=== PATIENT | female | born 1995 | race American Indian/Alaskan Native ===

== ENCOUNTER 2018-09-29 17:30 | Emergency (ER) | payer MEDICAID ==
[~2018-09-29] VITALS: Ht 160 cm; Wt 55.0 kg
[~2018-09-29 17:30] MED LIST: CEPH-571 PO; PHEN-786 PO
[2018-09-29 17:39] VITALS: BP 118/72
[2018-09-29] MEDS ORDERED: rabies immune globulin/PF 150 unit/ml inj IMVAC STA (18:08)
[2018-09-29] MEDS ORDERED: TETanus/Pertussis (Acell)/Diphther VAC/PF (Tdap-Adult) 0.5ml syringe IM ONE (18:10)
[2018-09-29] MEDS ORDERED: rabies vaccine (PCEC)/PF 2.5 unit kit IMVAC ONE (18:10)
[2018-09-29] MEDS ORDERED: mupirocin 2% ointment 22GM TP ONE (18:10)
[2018-09-29] MEDS ORDERED: LIDOcaine 1.5% w/epinephrine 1:200,000 5ml ampul IJ ONE (18:10)
[2018-09-29] MEDS ORDERED: LIDOcaine 1% w/epiNEPHrine 1:200,000 30ml vial IJ ONE (18:20)
[2018-09-29] MEDS ORDERED: AMOX-580 PO (18:26)
== END 2018-09-29 19:09 | disposition home or self-care (01) ==
LOC: ER 17:30
DX: S81.032A Puncture wound without foreign body, left knee, initial encounter (principal); F12.90 Cannabis use, unspecified, uncomplicated; W54.0XXA Bitten by dog, initial encounter; Y93.89 Activity, other specified; Y92.89 Other specified places as the place of occurrence of the external cause; Y99.8 Other external cause status
CPT/HCPCS: 90375; 90471; 90472; 90675; 90715; 96372; 99283; J3490

== ENCOUNTER 2019-01-05 12:34 | Emergency (ER) | payer MEDICAID ==
[~2019-01-05] VITALS: Ht 165.1 cm; Wt 64.3 kg
[~2019-01-05 12:34] MED LIST changes: +GABA300C PO; +LORA1TAB PO; +MULT-933 PO
[2019-01-05 12:55] VITALS: BP 106/76
[2019-01-05] MEDS ORDERED: ONDA4TAB6 PO (14:24)
[2019-01-05] MEDS ORDERED: GABA-532 PO (14:24)
[2019-01-05] MEDS ORDERED: MULT-933 PO (14:24)
== END 2019-01-05 14:34 | disposition home or self-care (01) ==
LOC: ER 12:43
DX: F19.10 Other psychoactive substance abuse, uncomplicated (principal); M54.9 Dorsalgia, unspecified; R42 Dizziness and giddiness; F12.90 Cannabis use, unspecified, uncomplicated; Z02.89 Encounter for other administrative examinations; Z86.14 Personal history of Methicillin resistant Staphylococcus aureus infection; Z79.899 Other long term (current) drug therapy
CPT/HCPCS: 99283

== ENCOUNTER 2019-04-12 02:25 | Emergency (ER) | payer MEDICAID ==
[~2019-04-12] VITALS: Ht 162.6 cm; Wt 60.9 kg
[~2019-04-12 02:25] MED LIST changes: +GABA-532 PO; -LORA1TAB PO; +ONDA4TAB6 PO
[2019-04-12 02:27] VITALS: BP 112/70
--- NOTE | 2019-04-12 02:50 | NUR ---
Registration reports that the patient is leaving. The patient made no mention to nursing staff. Attempted to contact the patient but she was gone from the lobby by the time I got there. I stepped out front and called for the patient but she was nowhere to be found.
== END 2019-04-12 02:53 | disposition left against medical advice (07) ==
LOC: ER 02:25
DX: R51 Headache (principal); Z53.21 Procedure and treatment not carried out due to patient leaving prior to being seen by health care provider

== ENCOUNTER 2019-06-21 04:40 | Emergency (ER) | payer MEDICAID ==
[~2019-06-21] VITALS: Ht 160 cm; Wt 56.6 kg
[2019-06-21] MEDS ORDERED: ACET-812 PO (04:58)
[2019-06-21] MEDS ORDERED: IBUP-1986 PO (04:58)
[2019-06-21 05:07] VITALS: BP 128/91
== END 2019-06-21 05:11 | disposition home or self-care (01) ==
LOC: ER 04:41
DX: M79.18 Myalgia, other site (principal); M54.2 Cervicalgia; M25.512 Pain in left shoulder; R51 Headache; M19.90 Unspecified osteoarthritis, unspecified site; F12.90 Cannabis use, unspecified, uncomplicated; Z86.14 Personal history of Methicillin resistant Staphylococcus aureus infection; Z79.899 Other long term (current) drug therapy
CPT/HCPCS: 99282

== ENCOUNTER 2019-07-19 13:33 | Emergency (ER) | payer MEDICAID ==
[~2019-07-19] VITALS: Ht 162.6 cm; Wt 57.7 kg
[~2019-07-19 13:33] MED LIST changes: +ACET-812 PO; +IBUP-1986 PO
[2019-07-19 13:59] VITALS: BP 136/89
== END 2019-07-19 16:09 | disposition left against medical advice (07) ==
LOC: ER 13:34
DX: R56.9 Unspecified convulsions (principal); R51 Headache; M25.511 Pain in right shoulder; M25.551 Pain in right hip; Z53.21 Procedure and treatment not carried out due to patient leaving prior to being seen by health care provider

== ENCOUNTER 2019-12-31 12:39 | Emergency (ER) | payer MEDICAID ==
[~2019-12-31] VITALS: Ht 167.6 cm; Wt 56.8 kg
[2019-12-31 14:23] LABS: BASOPHILS % (AUTO) 0.4 % (0-1); EOSINOPHILS % (AUTO) 0.3 % (0-6); HEMATOCRIT 41.6 % (35.0-45.0); HEMOGLOBIN 13.9 g/dl (12.0-16.0); LYMPHOCYTES # (AUTO) 1.3 X10'3 (1.1-4.8); LYMPHOCYTES % (AUTO) 16.9 % (21-51); MEAN CORPUSCULAR HEMOGLOBIN 31.6 PG (27.0-31.0); MEAN CORPUSCULAR HGB CONC 33.3 g/dL (33.0-36.5); MEAN CORPUSCULAR VOLUME 94.8 FL (78-98); MEAN PLATELET VOLUME 7.5 FL (7.4-10.4); MONOCYTES # (AUTO) 0.6 X10'3 (0-0.9); MONOCYTES % (AUTO) 7.7 % (2-12); NEUTROPHILS # (AUTO) 5.7 X10'3 (1.8-7.7); NEUTROPHILS % (AUTO) 74.7 % (42-75); PLATELET COUNT 306 X10'3 (140-440); RED BLOOD COUNT 4.39 X10'6 (4.20-5.60); RED CELL DISTRIBUTION WIDTH 14.6 % (11.5-14.5); WHITE BLOOD COUNT 7.6 X10'3 (4.5-11.0)
[2019-12-31 14:32] LABS: ALANINE AMINOTRANSFERASE 24 U/L (12-78); ALKALINE PHOSPHATASE 81 IU/L (46-116); ANION GAP 6 (8-16); ASPARTATE AMINO TRANSFERASE 23 U/L (10-37); BILIRUBIN,TOTAL 0.4 MG/DL (0.1-1.0); BLOOD UREA NITROGEN 8 MG/DL (7-18); BUN/CREATININE RATIO 10.8 (6.6-38.0); CALCIUM 8.8 MG/DL (8.5-10.1); CHLORIDE 106 MMOL/L (99-107); CREATININE 0.74 MG/DL (0.40-0.90); ETHANOL < 0.010 GM/DL (0.0-0.010); GLUCOSE 84 MG/DL (70-104); POTASSIUM 3.9 MMOL/L (3.5-5.1); SODIUM 139 MMOL/L (135-145); TOTAL CARBON DIOXIDE 27.1 MMOL/L (24-32); TOTAL PROTEIN 7.9 G/DL (6.4-8.2); eGFR > 90 ML/MIN
[2019-12-31] MEDS ORDERED: LORazepam 1 MG tablet PO ONE (14:40)
[2019-12-31] MEDS ORDERED: normal saline 1000ml 1,000 ML IV ONE (14:40)
[2019-12-31 14:49] LABS: CLARITY,URINE CLEAR (Clear); COLOR,URINE YELLOW (Yellow); GLUCOSE, URINE NEGATIVE (Neg); KETONES,URINE TRACE mg/dl (Neg); LEUKOCYTE ESTERASE ,URINE TRACE (Neg); NITRITES, URINE NEGATIVE (Neg); OCCULT BLOOD,URINE NEGATIVE (Neg); PROTEIN,URINE TRACE mg/dl (Neg); UA COLLECTION TYPE CLN CATCH MIDSTREAM; UROBILINOGEN,URINE 0.2 E.U/dL (0.2-1.0)
[2019-12-31 14:56] LABS: BACTERIA,URINE 1+ /HPF (Neg); MUCUS STRANDS MODERATE /LPF (Neg); RBC,URINE NONE SEEN /HPF (0-2); SQUAMOUS EPITHELIAL CELL,UR MODERATE /LPF (FEW)
[2019-12-31 15:02] LABS: URINE AMPHETAMINE SCREEN POSITIVE (Neg); URINE BARBITUATE SCREEN NEGATIVE (Neg); URINE BENZODIAZEPINES SCREEN NEGATIVE (Neg); URINE CANNABINOID SCREEN POSITIVE (Neg); URINE COCAINE SCREEN NEGATIVE (Neg); URINE METHADONE SCREEN NEGATIVE (Neg); URINE OPIATE SCREEN NEGATIVE (Neg); URINE PHENCYCLIDINE SCREEN NEGATIVE (Neg)
[2019-12-31] MEDS ORDERED: NITR100C6 PO (15:13)
[2019-12-31] MEDS ORDERED: KEP500T PO (15:13)
[2019-12-31] MEDS ORDERED: levetiracetam 250mg tablet PO ONE (15:15)
[2019-12-31 15:42] VITALS: BP 124/75
== END 2019-12-31 15:44 | disposition home or self-care (01) ==
LOC: ER 12:39
DX: S00.83XA Contusion of other part of head, initial encounter (principal); G40.909 Epilepsy, unspecified, not intractable, without status epilepticus; N39.0 Urinary tract infection, site not specified; F12.90 Cannabis use, unspecified, uncomplicated; R41.0 Disorientation, unspecified; Z86.14 Personal history of Methicillin resistant Staphylococcus aureus infection; Z79.899 Other long term (current) drug therapy; W18.39XA Other fall on same level, initial encounter; Y93.89 Activity, other specified; Y92.89 Other specified places as the place of occurrence of the external cause; Y99.8 Other external cause status
CPT/HCPCS: 36415; 70450; 80053; 80305; 80320; 81001; 82948; 85025; 87088; 93005; 99285; J7030

== ENCOUNTER 2020-07-05 05:31 | Emergency (ER) | payer MEDICAID ==
[~2020-07-05] VITALS: Ht 170.2 cm; Wt 56.8 kg
[~2020-07-05 05:31] MED LIST changes: +KEP500T PO; +NITR100C6 PO
[2020-07-05] MEDS ORDERED: LIDOcaine 1% W/epiNEPHrine 1:200,000 10ml vial IJ ONE (05:45)
[2020-07-05] MEDS ORDERED: LIDOcaine 1% W/epiNEPHrine 1:100,000 20ml vial ONE (05:55)
[2020-07-05 06:02] LABS: BASOPHILS % (AUTO) 0.3 % (0-1); EOSINOPHILS % (AUTO) 0.4 % (0-6); HEMATOCRIT 42.1 % (35.0-45.0); HEMOGLOBIN 14.3 g/dl (12.0-16.0); LYMPHOCYTES # (AUTO) 1.6 X10'3 (1.1-4.8); LYMPHOCYTES % (AUTO) 14.4 % (21-51); MEAN CORPUSCULAR HEMOGLOBIN 33.6 PG (27.0-31.0); MEAN CORPUSCULAR VOLUME 98.7 FL (78-98); MEAN PLATELET VOLUME 7.5 FL (7.4-10.4); MONOCYTES # (AUTO) 0.7 X10'3 (0-0.9); MONOCYTES % (AUTO) 6.2 % (2-12); NEUTROPHILS # (AUTO) 8.9 X10'3 (1.8-7.7); NEUTROPHILS % (AUTO) 78.7 % (42-75); PLATELET COUNT 319 X10'3 (140-440); RED BLOOD COUNT 4.26 X10'6 (4.20-5.60); RED CELL DISTRIBUTION WIDTH 13.6 % (11.5-14.5); WHITE BLOOD COUNT 11.4 X10'3 (4.5-11.0)
[2020-07-05 06:12] LABS: ALBUMIN 3.8 G/DL (3.4-5.0); ANION GAP 11 (8-16); BLOOD UREA NITROGEN 11 MG/DL (7-18); BUN/CREATININE RATIO 20.4 (6.6-38.0); CALCIUM 8.9 MG/DL (8.5-10.1); CHLORIDE 106 MMOL/L (99-107); CREATININE 0.54 MG/DL (0.40-0.90); ETHANOL 0.083 GM/DL (0.0-0.010); GLUCOSE 99 MG/DL (70-104); POTASSIUM 3.8 MMOL/L (3.5-5.1); SODIUM 143 MMOL/L (135-145); TOTAL CARBON DIOXIDE 26.2 MMOL/L (24-32); eGFR > 90 ML/MIN
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
[2020-07-05 06:23] LABS: HCG SERUM QL NEGATIVE
--- NOTE | 2020-07-05 07:44 | NUR ---
sister marissa cha [phone]
[2020-07-05 07:45] LABS: CLARITY,URINE SLIGHTLY CLOUDY (Clear); COLOR,URINE YELLOW (Yellow); GLUCOSE, URINE NEGATIVE (Neg); KETONES,URINE NEGATIVE (Neg); LEUKOCYTE ESTERASE ,URINE NEGATIVE (Neg); NITRITES, URINE NEGATIVE (Neg); OCCULT BLOOD,URINE NEGATIVE (Neg); PROTEIN,URINE NEGATIVE (Neg); UROBILINOGEN,URINE 0.2 E.U/dL (0.2-1.0)
[2020-07-05 07:46] LABS: UA COLLECTION TYPE STRAIGHT CATH
[2020-07-05 07:53] LABS: COARSE GRANULAR CAST 0-3 /LPF (NEGATIVE); HYALINE CASTS 0-3 /LPF (NEGATIVE); MUCUS STRANDS MODERATE /LPF (Neg); SQUAMOUS EPITHELIAL CELL,UR MODERATE /LPF (FEW)
[2020-07-05 07:54] LABS: BACTERIA,URINE 2+ /HPF (Neg); TRANSITIONAL EPI CELLS,URINE FEW /HPF
[2020-07-05 07:55] LABS: RBC,URINE 0-2 /HPF (0-2); WBC,URINE 0-4 /HPF (0-4)
[2020-07-05 09:08] VITALS: BP 112/84
== END 2020-07-05 09:09 | disposition home or self-care (01) ==
LOC: ER 05:31
DX: S01.81XA Laceration without foreign body of other part of head, initial encounter (principal); S90.32XA Contusion of left foot, initial encounter; F10.129 Alcohol abuse with intoxication, unspecified; M25.572 Pain in left ankle and joints of left foot; F12.90 Cannabis use, unspecified, uncomplicated; Z86.69 Personal history of other diseases of the nervous system and sense organs; Z86.14 Personal history of Methicillin resistant Staphylococcus aureus infection; Z79.2 Long term (current) use of antibiotics; Z79.899 Other long term (current) drug therapy; X58.XXXA Exposure to other specified factors, initial encounter; Y93.89 Activity, other specified; Y92.89 Other specified places as the place of occurrence of the external cause; Y99.8 Other external cause status
CPT/HCPCS: 12013; 36415; 70450; 71045; 80048; 80320; 81001; 84703; 85025; 99285

== ENCOUNTER 2023-05-29 01:38 | Emergency (ER) | payer MEDICAID ==
[2023-05-29] MEDS ORDERED: MUPI22OI30 TOP (13:46)
[2023-05-29] MEDS ORDERED: CEPH-585 PO (13:46)
== END 2023-05-29 04:26 | disposition left against medical advice (07) ==
LOC: ER 01:39
DX: S91.319A Laceration without foreign body, unspecified foot, initial encounter (principal); Z53.21 Procedure and treatment not carried out due to patient leaving prior to being seen by health care provider; X58.XXXA Exposure to other specified factors, initial encounter; Y93.89 Activity, other specified; Y92.89 Other specified places as the place of occurrence of the external cause; Y99.8 Other external cause status

== ENCOUNTER 2023-05-29 10:32 | Emergency (ER) | payer MEDICAID ==
[~2023-05-29] VITALS: Ht 165.1 cm; Wt 59.1 kg
[2023-05-29 10:57] VITALS: BP 115/66; PULSE 100; RESP 16; TEMP 97.8; O2SAT 99
[2023-05-29] MEDS ORDERED: mupirocin 2% ointment 22GM TP ONE (11:55)
[2023-05-29] MEDS ORDERED: TETanus/Pertussis (Acell)/Diphther VAC/PF (Tdap-Adult) 0.5ml syringe IMVAC ONE (11:55)
[2023-05-29] MEDS ORDERED: MUPI22OI30 TOP (13:46)
[2023-05-29] MEDS ORDERED: CEPH-585 PO (13:46)
== END 2023-05-29 13:55 | disposition home or self-care (01) ==
LOC: ER 10:33
DX: S91.301A Unspecified open wound, right foot, initial encounter (principal); M79.671 Pain in right foot; L02.611 Cutaneous abscess of right foot; F12.90 Cannabis use, unspecified, uncomplicated; M19.90 Unspecified osteoarthritis, unspecified site; Z87.81 Personal history of (healed) traumatic fracture; Z86.14 Personal history of Methicillin resistant Staphylococcus aureus infection; Z79.899 Other long term (current) drug therapy; Z23 Encounter for immunization; Z79.2 Long term (current) use of antibiotics; V86.56XA Driver of dirt bike or motor/cross bike injured in nontraffic accident, initial encounter; Y93.89 Activity, other specified; Y92.89 Other specified places as the place of occurrence of the external cause; Y99.8 Other external cause status
CPT/HCPCS: 73630; 90471; 90715; 99283; L4360; A6258; A6449

== ENCOUNTER 2023-10-07 08:36 | Outpatient (CLI) | payer MEDICAID ==
[~2023-10-07 08:36] MED LIST changes: +CEPH-585 PO
== END 2023-10-07 23:59 | disposition home or self-care (01) ==
LOC: RAD 08:36
PROVIDERS: ATTEND Family Medicine
DX: R56.9 Unspecified convulsions (principal); I60.9 Nontraumatic subarachnoid hemorrhage, unspecified
CPT/HCPCS: 95819

== ENCOUNTER 2023-10-14 11:35 | Emergency (ER) | payer MEDICAID ==
[~2023-10-14] VITALS: Ht 160 cm; Wt 59.5 kg
[2023-10-14] MEDS ORDERED: NICO-630 TD (12:57)
[2023-10-14] MEDS ORDERED: CHLO25CA10 PO ×2 (12:57→13:01)
[2023-10-14] MEDS ORDERED: NICO-631 TOP (12:57)
[2023-10-14 13:09] VITALS: BP 134/78; PULSE 70; RESP 16; TEMP 97.2; O2SAT 98
== END 2023-10-14 13:14 | disposition home or self-care (01) ==
LOC: ER 11:36
DX: F10.99 Alcohol use, unspecified with unspecified alcohol-induced disorder (principal); M19.90 Unspecified osteoarthritis, unspecified site; F12.90 Cannabis use, unspecified, uncomplicated; Z79.1 Long term (current) use of non-steroidal anti-inflammatories (NSAID); Z79.2 Long term (current) use of antibiotics; Z79.899 Other long term (current) drug therapy; Y90.9 Presence of alcohol in blood, level not specified
CPT/HCPCS: 99283